=== PATIENT | female | born 2000 | race Hispanic/Latino ===

== ENCOUNTER 2022-09-18 21:10 | Emergency (ER) | payer OTHER ==
[~2022-09-18] VITALS: Ht 160 cm; Wt 55.3 kg
[2022-09-18 22:55] VITALS: BP 113/80
[2022-09-19] MEDS ORDERED: LIDOCAINE HCL 1% 20 ML VIAL ONE (00:01)
[2022-09-19] MEDS ORDERED: IBUP-2070 PO (00:59)
[2022-09-19] MEDS ORDERED: MUPI22OI2 TP (00:59)
[2022-09-19] MEDS ORDERED: AMOX-426 PO (00:59)
[2022-09-19] MEDS ORDERED: TETANUS/DIPHTHERIA TOXOID [ADULT] 0.5 ML VIAL IM ONE ×2 (01:00→01:02)
[2022-09-19] MEDS ORDERED: LIDOCAINE HCL 1% 20 ML VIAL INJ SCH (01:00)
[2022-09-19] MEDS ORDERED: IBUPROFEN 600 MG TABLET PO ONE (01:00)
[2022-09-19] MEDS ORDERED: AMOX/CLAV 875/125MG TAB PO ONE (01:00)
== END 2022-09-19 01:29 | disposition home or self-care (01) ==
LOC: EDH 21:10 → EDBD 21:10 → EDH 09-19 01:29
DX: S81.852A Open bite, left lower leg, initial encounter (principal); W54.0XXA Bitten by dog, initial encounter; Y93.89 Activity, other specified; Y92.89 Other specified places as the place of occurrence of the external cause; Y99.8 Other external cause status
CPT/HCPCS: 12004; 90471; 90714